=== PATIENT | male | born 1940 | race Caucasian/White ===

== ENCOUNTER → 2017-10-25 | Outpatient (CLI) | payer OTHER, MEDICARE ==
[2017-10-25 13:36] LABS: BASOPHIL % 0.4 % (0-2); PLATELET COUNT 291 x10^3mcL (130-400)
[2017-10-25 13:46] LABS: RED CELL DISTRIBUTION WIDTH 15.4 % (11.5-14.5)
[2017-10-25 13:47] LABS: CALCIUM 8.7 mg/dL (8.5-10.1); CARBON DIOXIDE 27.5 mmol/L (21-32); CHLORIDE SERUM 100 mmol/L (98-107); CREATININE SERUM 1.1 mg/dL (0.7-1.3); GLUCOSE SERUM 128 mg/dL (74-106); SODIUM SERUM 136 mmol/L (136-145)
== END | disposition home or self-care (01) ==
LOC: LB 12:43
DX: R10.30 Lower abdominal pain, unspecified (principal); K43.2 Incisional hernia without obstruction or gangrene

== ENCOUNTER 2018-04-14 15:02 | Emergency (ER) | payer OTHER, MEDICARE ==
[~2018-04-14] VITALS: Ht 177.8 cm; Wt 127.0 kg
[2018-04-14 15:06] VITALS: Ht 177.8 cm; Wt 127.0 kg
[2018-04-14 17:55] LABS: PLATELET COUNT 287 x10^3mcL (130-400)
[2018-04-14 18:03] LABS: CARBON DIOXIDE 27.9 mmol/L (21-32); CHLORIDE SERUM 100 mmol/L (98-107); GLUCOSE SERUM 118 mg/dL (74-106); POTASSIUM SERUM 4.1 mmol/L (3.5-5.1); SODIUM SERUM 136 mmol/L (136-145)
[2018-04-14 18:07] LABS: ALBUMIN 3.8 g/dL (3.4-5.0); ALKALINE PHOSPHATASE 49 U/L (46-116); ALT/SGPT 21 U/L (16-63); AST/SGOT 13 U/L (15-37); BILIRUBIN TOTAL 0.5 mg/dL (0.20-1.00); TOTAL PROTEIN, SERUM 7.8 g/dL (6.4-8.2)
[2018-04-14 21:26] VITALS: BP 138/77
== END 2018-04-14 21:27 | disposition home or self-care (01) ==
LOC: ED 15:02
PROVIDERS: Emergency Medicine
DX: S23.3XXA Sprain of ligaments of thoracic spine, initial encounter (principal); S16.1XXA Strain of muscle, fascia and tendon at neck level, initial encounter; I10 Essential (primary) hypertension; V89.2XXA Person injured in unspecified motor-vehicle accident, traffic, initial encounter; Y93.I9 Activity, other involving external motion; Y92.89 Other specified places as the place of occurrence of the external cause; Y99.8 Other external cause status
CPT/HCPCS: 36415; Q9967

== ENCOUNTER → 2018-09-19 | Outpatient (CLI) | payer OTHER, MEDICARE ==
[2018-09-19 13:41] LABS: microscopic required? NO
[2018-09-19 13:54] LABS: BASOPHIL % 0.6 % (0-2); PLATELET COUNT 308 x10^3mcL (130-400); RED CELL DISTRIBUTION WIDTH 13.8 % (11.5-14.5)
[2018-09-19 13:57] LABS: UA SPECIFIC GRAVITY 1.025 (1.005-1.035); urine erythrocyte NEGATIVE (NEGATIVE)
[2018-09-19 14:08] LABS: ALBUMIN 3.5 g/dL (3.4-5.0); ALKALINE PHOSPHATASE 55 U/L (46-116); ALT/SGPT 21 U/L (16-63); AST/SGOT 15 U/L (15-37); BILIRUBIN TOTAL 0.5 mg/dL (0.20-1.00); CALCIUM 9.1 mg/dL (8.5-10.1); CARBON DIOXIDE 31.9 mmol/L (21-32); CHLORIDE SERUM 98 mmol/L (98-107); CREATININE SERUM 1.1 mg/dL (0.7-1.3); GLUCOSE SERUM 104 mg/dL (74-106); POTASSIUM SERUM 4.5 mmol/L (3.5-5.1); SODIUM SERUM 131 mmol/L (136-145); TOTAL PROTEIN, SERUM 7.4 g/dL (6.4-8.2)
== END | disposition home or self-care (01) ==
LOC: LB 13:03
DX: M48.061 Spinal stenosis, lumbar region without neurogenic claudication (principal)

== ENCOUNTER 2019-07-23 16:55 | Emergency (ER) | payer OTHER, MEDICARE ==
[~2019-07-23] VITALS: Ht 177.8 cm; Wt 112.9 kg
[2019-07-23 17:27] VITALS: Ht 177.8 cm; Wt 112.9 kg
[2019-07-23 19:15] LABS: BASOPHIL % 1.1 % (0-2); PLATELET COUNT 282 x10^3mcL (130-400)
[2019-07-23 19:28] LABS: CALCIUM 8.5 mg/dL (8.5-10.1); CARBON DIOXIDE 30.6 mmol/L (21-32); CHLORIDE SERUM 99 mmol/L (98-107); CREATININE SERUM 1.1 mg/dL (0.7-1.3); GLUCOSE SERUM 129 mg/dL (74-106); POTASSIUM SERUM 4.1 mmol/L (3.5-5.1); SODIUM SERUM 136 mmol/L (136-145)
[2019-07-23 19:32] LABS: ALBUMIN 3.8 g/dL (3.4-5.0); ALKALINE PHOSPHATASE 67 U/L (46-116); ALT/SGPT 27 U/L (16-63); AST/SGOT 14 U/L (15-37); BILIRUBIN TOTAL 0.74 mg/dL (0.20-1.00); CHOLESTEROL 170 mg/dL (<200); TOTAL PROTEIN, SERUM 7.9 g/dL (6.4-8.2); TRIGLYCERIDES 128 mg/dL (<150)
[2019-07-23 19:34] LABS: CHOLESTEROL/HDL RATIO 5.3; HDL CHOLESTEROL 32 mg/dL (40-60)
[2019-07-23 20:50] VITALS: BP 137/77
== END 2019-07-23 20:50 | disposition home or self-care (01) ==
LOC: ED 16:55
PROVIDERS: Specialist
DX: J10.1 Influenza due to other identified influenza virus with other respiratory manifestations (principal); I10 Essential (primary) hypertension
CPT/HCPCS: 36415; 83880; 87804

== ENCOUNTER 2019-09-26 10:33 | Emergency (ER) | payer OTHER, MEDICARE ==
[~2019-09-26] VITALS: Ht 167.6 cm; Wt 108.4 kg
[2019-09-26 10:45] VITALS: Ht 167.6 cm; Wt 108.4 kg
[2019-09-26 16:37] VITALS: BP 157/96
== END 2019-09-26 16:37 | disposition home or self-care (01) ==
LOC: ED 10:33
DX: M10.071 Idiopathic gout, right ankle and foot (principal); I10 Essential (primary) hypertension; Z48.01 Encounter for change or removal of surgical wound dressing; Z98.890 Other specified postprocedural states
CPT/HCPCS: J3010

== ENCOUNTER 2020-01-14 13:49 | Emergency (ER) | payer OTHER, MEDICARE ==
[~2020-01-14] VITALS: Ht 177.8 cm; Wt 104.3 kg
[2020-01-14 14:22] LABS: BASOPHIL % 0.4 % (0-2); PLATELET COUNT 320 x10^3mcL (130-400)
[2020-01-14 14:23] LABS: RED CELL DISTRIBUTION WIDTH 17.2 % (11.5-14.5)
[2020-01-14 15:17] LABS: ERYTHROCYTE SED RATE 30 mm/hr (0-20)
[2020-01-14 15:18] VITALS: BP 120/78
== END 2020-01-14 15:18 | disposition home or self-care (01) ==
LOC: ED 13:49
PROVIDERS: Emergency Medicine
DX: M79.672 Pain in left foot (principal); I10 Essential (primary) hypertension
CPT/HCPCS: 36415; J1885; Q0092